=== PATIENT | male | born 1950 | race Caucasian/White ===

== ENCOUNTER 2019-01-19 20:27 | Emergency (ER) | payer OTHER ==
--- NOTE | 2019-01-19 21:31 | CT ---
CT OF THE BRAIN WITHOUT CONTRAST: 01/19/19 INDICATION: History of fall with head injury. COMPARISON: None. FINDINGS: There is a remote lacunar infarct involving the right caudate head. No definite acute infarct, hemorr rocio or hydrocephalus is present. There is mild chronic small vessel white matter ischemic change. Sk ull and extracranial soft tissues appear within normal limits. IMPRESSION: 1. No intracranial abnormality. 2. Mild chronic ischemic changes as above. POS: ALBERTO
--- NOTE | 2019-01-19 21:34 | CT ---
CT CERVICAL SPINE WITHOUT CONTRAST: 01/19/19 INDICATION: Fall with neck pain. COMPARISON: None. FINDINGS: No acute fracture or subluxation is evident. There is moderate multilevel spondylosis of the cervical spine. 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 Prevertebral soft tis sues appear within normal limits. Craniocervical junction is normal appearing. IMPRESSION: No acute osseous abnormality. POS: ALBERTO
--- NOTE | 2019-01-19 21:37 | CT ---
CT OF THE FACE WITHOUT CONTRAST 01/19/19 INDICATION: Fall with injury to the nasal bridge. COMPARISON: None. FINDINGS: There is bilateral nasal bone fractures with displacement of the nasal bone fractures to the right ap proximately 2.5 mm. There is depression of the mid aspect of the right zygomatic arch which may refle ct an acute depressed zygomatic arch fracture; however, there is no overlying soft tissue swelling an d may reflect a remote injury. Left zygomatic arch is intact. The mastoid air cells and paranasal sin uses are clear. Osseous nasal septum appears intact. Orbital rims and orbital delcid are intact. The m andible is intact. IMPRESSION: 1. Displaced bilateral nasal bone fracture. 2. Depression of the right zygomatic arch may reflect sequela of remote injury. Recommend correl ation with clinical exam. POS: ALBERTO
--- NOTE | 2019-01-19 21:38 | RAD ---
LEFT KNEE FOUR VIEWS: 01/19/19 INDICATION: Fall with left knee pain. COMPARISON: None. FINDINGS: There is moderate to severe osteoarthrosis of the left knee. No acute fracture or subluxation is evid ent. No joint capsular distention is noted. IMPRESSION: No acute osseous abnormality. POS: TERESA
[2019-01-19] MEDS ORDERED: Lidocaine 1% w/Epinephrine 1:100K 20 ML VIAL ONE (22:16)
[2019-01-19] MEDS ORDERED: Adacel (T-DAP) 0.5 ML SYRINGE ONE (22:38)
[2019-01-19] MEDS ORDERED: Bacitracin Zinc 1 Packet ONE (23:13)
== END 2019-01-19 23:29 | disposition home or self-care (01) ==
LOC: SCSER 20:27
DX: S02.2XXA Fracture of nasal bones, initial encounter for closed fracture (principal); S01.81XA Laceration without foreign body of other part of head, initial encounter; E78.5 Hyperlipidemia, unspecified; R73.03 Prediabetes; W01.10XA Fall on same level from slipping, tripping and stumbling with subsequent striking against unspecified object, initial encounter
CPT/HCPCS: 12011; 70450; 70486; 72125; 90471; 90715; J2001

== ENCOUNTER 2019-01-26 10:08 | Emergency (ER) | payer OTHER ==
[2019-01-26] MEDS ORDERED: Bacitracin Zinc 1 Packet ONE (10:33)
== END 2019-01-26 10:44 | disposition home or self-care (01) ==
LOC: SCSER 10:08
DX: S01.81XD Laceration without foreign body of other part of head, subsequent encounter (principal); E78.5 Hyperlipidemia, unspecified; R73.03 Prediabetes; X58.XXXD Exposure to other specified factors, subsequent encounter

== ENCOUNTER 2023-11-09 11:18 | Inpatient (IN) | payer OTHER, MEDICARE ==
[~2023-11-09 11:18] MED LIST: Iopamidol-370 76% 500 ML MDV (1 ML CHARGE) ONE
[2023-11-09 11:50] LABS: #Basophils 0.1 thou/uL (0.0-0.2); #Eosinphils 0.2 thou/uL (0.0-0.7); #Monocytes 1.1 thou/uL (0.11-0.59); %Basophils 0.6 % (0.0-1.0); %Eosinophils 1.2 % (0.0-10.0); %Lymphocytes 8.8 % (21.0-51.0); %Monocytes 6.8 % (0.0-10.0); %Neutrophils 82.2 % (42.0-75.0); Hemoglobin 8.7 g/dL (14.0-18.0); Mean Corpuscular HGB CONC 31.1 g/dL (32.0-36.0); Mean Corpuscular Hemoglobin 32.2 pg (27.0-31.0); Mean Corpuscular Volume 103.7 fl (78.0-98.0); Mean Platelet Volume 11.3 fL (7.4-10.4); Platelet Count 258 10x3/uL (130-400); RBC Distribution Width 18.1 % (11.5-14.5); White Blood Cell (WBC) Count 15.8 10x3/uL (4.8-10.8)
[2023-11-09 12:08] LABS: INR-International Normal Ratio 1.4
[2023-11-09 12:09] LABS: PTT 49.3 sec (22.9-36.1)
[2023-11-09 12:14] LABS: ALT (SGPT) 24 U/L (8-55); AST (SGOT) 66 U/L (5-34); Alkaline Phosphatase 253 U/L (40-110); Anion Gap 16 mmol/L (10-20); BUN (Urea Nitrogen) 13 mg/dL (8.4-25.7); Calc. Creatinine Clearance 0 mL/min (70-130); Calcium 8.2 mg/dL (7.8-10.44); Carbon Dioxide 24 mmol/L (23-31); Chloride 100 mmol/L (98-107); Estimated GFR 78; Globulin 3.2 g/dL (2.4-3.5); Glucose 146 mg/dL (83-110); Lipase 37 U/L (8-78); Magnesium 1.3 mg/dL (1.6-2.6); Potassium 4.6 mmol/L (3.5-5.1); Protein, Total 6.2 g/dL (5.8-8.1); Sodium 135 mmol/L (136-145)
[2023-11-09 12:39] LABS: Troponin I Less than 0.010 ng/mL (< 0.028)
[2023-11-09] MEDS ORDERED: Ondansetron PF 4 MG/2 ML Vial ONE (12:47)
[2023-11-09] MEDS ORDERED: Cefepime 2 GM VIAL ONE (12:48)
[2023-11-09] MEDS ORDERED: Sodium Chloride 0.9% 100 ML ONE (12:48)
[2023-11-09] MEDS ORDERED: Pantoprazole 40 MG VIAL ONE (12:48)
[2023-11-09] MEDS ORDERED: Magnesium 2 GM/50 ML BAG (IN WATER) ONE (12:50)
[2023-11-09 13:54] LABS: SARS-CoV-2 NAA Rapid Test Not Detected (NotDetected)
[2023-11-09] MEDS ORDERED: Ondansetron PF 4 MG/2 ML Vial IVP PRN (14:19)
[2023-11-09] MEDS ORDERED: Acetaminophen 650 MG Suppository PR PRN (14:19)
[2023-11-09] MEDS ORDERED: HumaLOG 300 UNITS/3 ML VIAL SC PRN (14:55)
[2023-11-09] MEDS ORDERED: Dextrose 50% Abboject 50 ML SYRINGE SLOW IVP PRN (14:55)
[2023-11-09] MEDS ORDERED: Glucagon 1 MG/ML KIT IM PRN (14:55)
[2023-11-09] MEDS ORDERED: Dextrose 5% in Water 1,000 ML IV PRN (14:55)
[2023-11-09 15:20] LABS: Hemoglobin A1c 6.2 % (4.0-6.0)
[2023-11-09 15:43] LABS: Lactic Acid 3.2 mmol/L (0.5-2.2)
[2023-11-09] MEDS ORDERED: Vancomycin 1 GM/200 ML (FROZEN) BAG ONE (15:49)
[2023-11-09] MEDS: Lactated Ringer's 1,000 ML IV SCH ×2 (17:51→21:00)
[2023-11-09 18:33] VITALS: BMI 31.3
[2023-11-09] MEDS ORDERED: Vancomycin 1 GM in Premix 1 BAG IVPB SCH (18:45)
[2023-11-09 19:32] LABS: Bacteria/HPF None Seen HPF (None Seen); Bilirubin Negative (Negative); Blood, Urine 1+ (Negative); Clarity Clear (Clear); Glucose, Urine (Dipstick) Normal (Negative); Ketone, Urine Negative (Negative); Leukocyte Negative Leu/uL (Negative); Nitrite Negative (Negative); Protein, Urine (Dipstick) Negative (Neg-Trace); Specific Gravity, Urine 1.046 (1.002-1.036); Squamous Epithelial None Seen HPF (0-3); Urobilinogen Normal mg/dL (Less than 2); WBC/HPF 0-3 HPF (0-3)
[2023-11-09] MEDS: Rosuvastatin 10 MG TAB PO SCH (21:00)
[2023-11-09] MEDS: Pantoprazole 40 MG VIAL IVP SCH (21:00)
[2023-11-09] MEDS: Midodrine HCl 5 MG TAB PO SCH (21:00)
[2023-11-09] MEDS ORDERED: Insulin Glargine 30 UNITS/0.3 ML VIAL SC SCH (21:00)
[2023-11-09 22:54] LABS: Hematocrit 20.3 % (42.0-52.0); Hemoglobin 6.3 g/dL (14.0-18.0); Mean Platelet Volume 11.4 fL (7.4-10.4); Platelet Count 168 10x3/uL (130-400); RBC Distribution Width 17.8 % (11.5-14.5); Red Blood Cell (RBC) Count 1.97 mill/uL (4.70-6.10); White Blood Cell (WBC) Count 10.7 10x3/uL (4.8-10.8)
[2023-11-10] MEDS: Cefepime 2 GM in Sodium Chloride 0.9% 100 ML IVPB SCH ×2 (00:56→12:38)
[2023-11-10] MEDS: Lactated Ringer's 1,000 ML IV SCH ×2 (00:59→12:38)
[2023-11-10] MEDS ORDERED: Vancomycin HCl 750 MG in Sodium Chloride 0.9% 250 ML 250 ML IVPB SCH (04:00)
[2023-11-10] MEDS: Levothyroxine Sodium 50 MCG TAB PO SCH (06:52)
[2023-11-10] MEDS ORDERED: fentaNYL 50 mcg/mL 1 mL Vial ONE (10:50)
[2023-11-10] MEDS ORDERED: PROPOFOL 20 ML ONE (10:51)
[2023-11-10] MEDS ORDERED: Promethazine HCl 25 MG/ML VIAL IM PRN (11:10)
[2023-11-10] MEDS ORDERED: Ondansetron HCl/PF 4 MG/2 ML Vial IVP PRN (11:10)
[2023-11-10] MEDS: Midodrine HCl 5 MG TAB PO SCH ×3 (12:27→20:45)
[2023-11-10] MEDS: Pantoprazole 40 MG VIAL IVP SCH ×2 (12:27→20:45)
[2023-11-10 13:24] LABS: #Basophils 0.1 thou/uL (0.0-0.2); #Eosinphils 0.3 thou/uL (0.0-0.7); #Monocytes 0.8 thou/uL (0.11-0.59); #Neutrophils 5.4 thou/uL (1.40-6.50); %Basophils 0.9 % (0.0-1.0); %Eosinophils 3.1 % (0.0-10.0); %Lymphocytes 19.1 % (21.0-51.0); %Monocytes 9.4 % (0.0-10.0); Mean Corpuscular HGB CONC 31.9 g/dL (32.0-36.0); Mean Corpuscular Hemoglobin 32.2 pg (27.0-31.0); Platelet Count 185 10x3/uL (130-400); RBC Distribution Width 18.1 % (11.5-14.5); Red Blood Cell (RBC) Count 2.92 mill/uL (4.70-6.10)
[2023-11-10 13:39] LABS: Hematocrit 29.5 % (42.0-52.0); Hemoglobin 9.4 g/dL (14.0-18.0)
[2023-11-10 13:53] LABS: ALT (SGPT) 24 U/L (8-55); AST (SGOT) 50 U/L (5-34); Albumin 2.9 g/dL (3.4-4.8); Alkaline Phosphatase 189 U/L (40-110); Anion Gap 11 mmol/L (10-20); BUN (Urea Nitrogen) 10 mg/dL (8.4-25.7); Bilirubin, Total 1.9 mg/dL (0.2-1.2); Calc. Creatinine Clearance 106 mL/min (70-130); Calcium 8.3 mg/dL (7.8-10.44); Carbon Dioxide 26 mmol/L (23-31); Chloride 103 mmol/L (98-107); Estimated GFR 92; Globulin 3.2 g/dL (2.4-3.5); Glucose 131 mg/dL (83-110); Magnesium 1.6 mg/dL (1.6-2.6); Potassium 4.3 mmol/L (3.5-5.1); Protein, Total 6.1 g/dL (5.8-8.1); Sodium 136 mmol/L (136-145)
[2023-11-10] MEDS: Vancomycin 1 GM in Premix 1 BAG IVPB SCH (16:13)
[2023-11-10] MEDS: Rosuvastatin 10 MG TAB PO SCH (20:45)
[2023-11-11] MEDS: Cefepime 2 GM in Sodium Chloride 0.9% 100 ML IVPB SCH ×2 (01:56→12:02)
[2023-11-11] MEDS: Vancomycin 1 GM in Premix 1 BAG IVPB SCH (04:35)
[2023-11-11] MEDS: Levothyroxine Sodium 50 MCG TAB PO SCH (04:45)
[2023-11-11] MEDS ORDERED: Insulin Glargine 30 UNITS/0.3 ML VIAL SC SCH (09:00)
[2023-11-11] MEDS: Pantoprazole 40 MG VIAL IVP SCH (09:59)
[2023-11-11] MEDS: Midodrine HCl 5 MG TAB PO SCH ×2 (09:59→16:28)
[2023-11-11 10:17] LABS: #Basophils 0.1 thou/uL (0.0-0.2); #Eosinphils 0.3 thou/uL (0.0-0.7); #Monocytes 0.9 thou/uL (0.11-0.59); #Neutrophils 5.4 thou/uL (1.40-6.50); %Basophils 0.7 % (0.0-1.0); %Eosinophils 3.6 % (0.0-10.0); %Lymphocytes 16.8 % (21.0-51.0); %Monocytes 11.2 % (0.0-10.0); %Neutrophils 67.3 % (42.0-75.0); Hematocrit 25.1 % (42.0-52.0); Mean Corpuscular HGB CONC 31.9 g/dL (32.0-36.0); Mean Corpuscular Hemoglobin 31.7 pg (27.0-31.0); Mean Corpuscular Volume 99.6 fl (78.0-98.0); Mean Platelet Volume 11.7 fL (7.4-10.4); Platelet Count 168 10x3/uL (130-400); RBC Distribution Width 17.2 % (11.5-14.5); Red Blood Cell (RBC) Count 2.52 mill/uL (4.70-6.10); White Blood Cell (WBC) Count 8.1 10x3/uL (4.8-10.8)
[2023-11-11 10:37] LABS: Magnesium 1.4 mg/dL (1.6-2.6)
[2023-11-11 10:40] LABS: ALT (SGPT) 18 U/L (8-55); AST (SGOT) 31 U/L (5-34); Albumin 2.5 g/dL (3.4-4.8); Alkaline Phosphatase 152 U/L (40-110); Anion Gap 9 mmol/L (10-20); BUN (Urea Nitrogen) 10 mg/dL (8.4-25.7); Bilirubin, Total 1.2 mg/dL (0.2-1.2); Calc. Creatinine Clearance 95 mL/min (70-130); Calcium 7.9 mg/dL (7.8-10.44); Carbon Dioxide 25 mmol/L (23-31); Chloride 100 mmol/L (98-107); Estimated GFR 83; Globulin 2.8 g/dL (2.4-3.5); Glucose 313 mg/dL (83-110); Potassium 4.6 mmol/L (3.5-5.1); Protein, Total 5.3 g/dL (5.8-8.1); Sodium 129 mmol/L (136-145)
[2023-11-11] MEDS: HumaLOG 300 UNITS/3 ML VIAL SC PRN ×2 (12:02→16:30)
[2023-11-11 15:01] LABS: Hematocrit 24.5 % (42.0-52.0); Mean Corpuscular HGB CONC 32.7 g/dL (32.0-36.0); Mean Corpuscular Hemoglobin 32.7 pg (27.0-31.0); Mean Platelet Volume 10.9 fL (7.4-10.4); Platelet Count 158 10x3/uL (130-400); Red Blood Cell (RBC) Count 2.45 mill/uL (4.70-6.10); White Blood Cell (WBC) Count 7.9 10x3/uL (4.8-10.8)
[2023-11-11 15:12] LABS: Vancomycin, Trough 14.3 ug/mL
[2023-11-11 16:36] VITALS: BP 128/68; TEMP 98
== END 2023-11-11 17:37 | disposition home or self-care (01) | DRG 377 ==
LOC: ERS 11:18 → MSONC 13:51
PROVIDERS: ADMIT Student in an Organized Health Care Education/Training Program; ATTEND Student in an Organized Health Care Education/Training Program
PROC: 0W3P8ZZ Control Bleeding in Gastrointestinal Tract, Via Natural or Artificial Opening Endoscopic (ICD-10-PCS; principal; 2023-11-10)
PROC: 0DB68ZX Excision of Stomach, Via Natural or Artificial Opening Endoscopic, Diagnostic (ICD-10-PCS; 2023-11-10)
PROC: 30233N1 Transfusion of Nonautologous Red Blood Cells into Peripheral Vein, Percutaneous Approach (ICD-10-PCS; 2023-11-10)
DX: K25.4 Chronic or unspecified gastric ulcer with hemorrhage (principal); I26.99 Other pulmonary embolism without acute cor pulmonale; K83.1 Obstruction of bile duct; I81 Portal vein thrombosis; C25.0 Malignant neoplasm of head of pancreas; E87.20 Acidosis, unspecified; R65.10 Systemic inflammatory response syndrome (SIRS) of non-infectious origin without acute organ dysfunction; C78.7 Secondary malignant neoplasm of liver and intrahepatic bile duct; E11.9 Type 2 diabetes mellitus without complications; Z51.5 Encounter for palliative care; Z66 Do not resuscitate; E03.9 Hypothyroidism, unspecified; E78.5 Hyperlipidemia, unspecified; I95.1 Orthostatic hypotension; F10.10 Alcohol abuse, uncomplicated; E83.42 Hypomagnesemia; E80.6 Other disorders of bilirubin metabolism; R60.0 Localized edema; K44.9 Diaphragmatic hernia without obstruction or gangrene; Z79.4 Long term (current) use of insulin; Z79.890 Hormone replacement therapy; Z79.899 Other long term (current) drug therapy; Z11.52 Encounter for screening for COVID-19; Z86.718 Personal history of other venous thrombosis and embolism; Z80.9 Family history of malignant neoplasm, unspecified; D53.9 Nutritional anemia, unspecified
CPT/HCPCS: 36415; 36416; 36430; 71045; 71260; 74177; 80053; 80202; 81001; 83036; 83605; 83690; 83735; 83880; 84145; 84484; 85025; 85610; 85730; 86850; 86900; 86901; 87040; 88305; 93005; 94760; 96365; 96367; 96368; 96375; C9113; J0692; J1815; J2405; J2704; J3010; J3370-JW; J3475; J3490; J7120; P9016; Q9967

== ENCOUNTER 2023-11-24 14:54 | Outpatient (CLI) | payer MEDICARE, OTHER | END 2023-11-24 14:55 | disposition home or self-care (01) | LOC: BICRAD 14:54 | PROVIDERS: ATTEND Internal Medicine | DX: C25.3 Malignant neoplasm of pancreatic duct (principal); J98.11 Atelectasis | CPT/HCPCS: 71046; 81001; 87086 ==

== ENCOUNTER 2023-12-19 11:52 | Outpatient (CLI) | payer MEDICARE, OTHER | END 2023-12-19 11:53 | disposition home or self-care (01) | LOC: BICRAD 11:52 | PROVIDERS: ATTEND Internal Medicine | DX: C25.3 Malignant neoplasm of pancreatic duct (principal); J90 Pleural effusion, not elsewhere classified | CPT/HCPCS: 36415; 71046; 80053 ==

== ENCOUNTER 2023-12-20 09:03 | Inpatient (IN) | payer MEDICARE, OTHER ==
[2023-12-20] MEDS ORDERED: Acetaminophen 500 MG TAB ONE (09:27)
[2023-12-20] MEDS ORDERED: Ondansetron PF 4 MG/2 ML Vial ONE (09:27)
[2023-12-20 09:39] LABS: Hematocrit 28.8 % (42.0-52.0); Hemoglobin 9.3 g/dL (14.0-18.0); Manual Diff?? YES; Mean Corpuscular HGB CONC 32.3 g/dL (32.0-36.0); Mean Corpuscular Hemoglobin 31.3 pg (27.0-31.0); Mean Platelet Volume 11.5 fL (7.4-10.4); Platelet Count 300 10x3/uL (130-400); RBC Distribution Width 17.2 % (11.5-14.5); Red Blood Cell (RBC) Count 2.97 mill/uL (4.70-6.10); White Blood Cell (WBC) Count 22.6 10x3/uL (4.8-10.8)
[2023-12-20 09:46] LABS: Delete Auto Diff?? YES
[2023-12-20 09:53] LABS: Troponin I 0.021 ng/mL (< 0.028)
[2023-12-20 09:55] LABS: Albumin 2.1 g/dL (3.4-4.8); Anion Gap 18 mmol/L (10-20); BUN (Urea Nitrogen) 17 mg/dL (8.4-25.7); Bilirubin, Total 1.3 mg/dL (0.2-1.2); Calc. Creatinine Clearance 0 mL/min (70-130); Calcium 7.5 mg/dL (7.8-10.44); Carbon Dioxide 16 mmol/L (23-31); Chloride 106 mmol/L (98-107); Critical Call Chemistry NUR.LB16 AT 0954; Estimated GFR 67; Glucose 108 mg/dL (83-110); Potassium 4.3 mmol/L (3.5-5.1); Protein, Total 5.2 g/dL (5.8-8.1); Sodium 136 mmol/L (136-145)
[2023-12-20 09:56] LABS: ALT (SGPT) 29 U/L (8-55); AST (SGOT) 78 U/L (5-34); Alkaline Phosphatase 201 U/L (40-110); Globulin 3.1 g/dL (2.4-3.5); Lipase 9 U/L (8-78); Magnesium 0.9 mg/dL (1.6-2.6)
[2023-12-20 10:06] LABS: Critical Call Chem-Lactate nur.lb16 at 1006
[2023-12-20 10:15] LABS: Base Excess -11.3 mEq/L (-2.0 to +3.0); Calcium, Ionized (venous) 1.07 mmol/L (1.16-1.32); Chloride (VBG) 106 mmol/L (98-106); Hematocrit-VBG 27 % (42.0-52.0); Hemoglobin (Hb) 9.2 g/dL (12.6-17.4); Potassium (VBG) 4.16 mmol/L (3.70-5.30); Sodium 135 mmol/L (133-146)
[2023-12-20 10:20] LABS: Actual Bicarbonate (HCO3v) 14.4 mEq/L (22-28)
[2023-12-20 10:33] LABS: Anisocytosis MARKED = >30 cells HPF (0-5); Band 20 % (5-11); Burr Cells SLIGHT = 2-5 cells HPF (0-1); CellaVision Operator ID LAB.KW3; Giant Platelets 2.8 % (0-5); Large Platelets 22.4 % (0-5); Lymphocytes 2 % (21-51); Metamyelocyte 1 % (0-0); Monocytes 3 % (0-10); Neutrophil 72 % (42-75); Nucleated RBC (Manual Ct) 1 % (0); Platelet Adequacy Comment Platelets Normal; Polychromasia SLIGHT = 2-3 cells HPF (0-2); Schistocytes SLIGHT = 2-5 cells HPF (0-1); Total Cell Count 107
[2023-12-20] MEDS ORDERED: Sodium Chloride 0.9% 100 ML ONE ×2 (10:43→18:33)
[2023-12-20] MEDS ORDERED: NOREPINEPHRINE 8 MG/250 ML-D5W 250 ML ONE (10:43)
[2023-12-20] MEDS ORDERED: Magnesium 2 GM/50 ML BAG (IN WATER) ONE (10:43)
[2023-12-20] MEDS ORDERED: Cefepime 2 GM VIAL ONE (10:43)
[2023-12-20] MEDS ORDERED: Iopamidol-370 76% 500 ML MDV (1 ML CHARGE) ONE (11:13)
[2023-12-20] MEDS ORDERED: metroNIDAZOLE 500 MG (100 mL) BAG ONE (11:45)
[2023-12-20 12:44] LABS: Bacteria/HPF None Seen HPF (None Seen); Bilirubin Negative (Negative); Blood, Urine Trace (Negative); CAUTI Indications for Culture Alt mental st,lethar; Clarity Clear (Clear); Glucose, Urine (Dipstick) Normal (Negative); Ketone, Urine Trace mg/dL (Negative); Leukocyte Negative Leu/uL (Negative); Nitrite Negative (Negative); Protein, Urine (Dipstick) 50 mg/dL (Neg-Trace); RBC/HPF 0-3 HPF (0-3); Squamous Epithelial 0-3 HPF (0-3); Urobilinogen Normal mg/dL (Less than 2); WBC/HPF 0-3 HPF (0-3)
[2023-12-20 12:48] LABS: Specific Gravity, Urine 1.044 (1.002-1.036)
[2023-12-20 12:49] LABS: Urine Culture Reflex No No
[2023-12-20 13:08] LABS: SARS-CoV-2 NAA Rapid Test Not Detected (NotDetected)
[2023-12-20 13:23] LABS: Critical Call Chem-Lactate NUR.LB16@1323; Lactic Acid 9.7 mmol/L (0.5-2.2)
[2023-12-20] MEDS ORDERED: Hydrocortisone Sod Succ/PF 100 mg/2 ml Vial ONE (16:15)
[2023-12-20] MEDS ORDERED: Glucagon 1 MG/ML KIT IM PRN (18:28)
[2023-12-20] MEDS ORDERED: Dextrose 50% Abboject 50 ML SYRINGE SLOW IVP PRN (18:28)
[2023-12-20] MEDS ORDERED: Dextrose 5% in Water 1,000 ML IV PRN (18:28)
[2023-12-20] MEDS ORDERED: Piperacillin/Tazobactam 4.5 GM VIAL ONE (18:32)
[2023-12-20] MEDS ORDERED: NOREPINEPHRINE 8 MG/250 ML-D5W 250 ML IVPB SCH (18:45)
[2023-12-20 19:08] LABS: Base Excess -13.9 mEq/L (-2.0 to +3.0); Calcium, Ionized (venous) 1.03 mmol/L (1.16-1.32); Chloride (VBG) 106 mmol/L (98-106); Hematocrit-VBG 26 % (42.0-52.0); Potassium (VBG) 4.95 mmol/L (3.70-5.30); Sodium 134 mmol/L (133-146); pH (venous) 7.288 (7.32-7.43)
[2023-12-20] MEDS ORDERED: Electrolyte Replacement Protocol 1 EACH FS PRN (19:15)
[2023-12-20 19:17] LABS: Troponin I 0.014 ng/mL (< 0.028)
[2023-12-20 19:45] LABS: ALT (SGPT) 91 U/L (8-55); AST (SGOT) 419 U/L (5-34); Alkaline Phosphatase 177 U/L (40-110); Anion Gap 20 mmol/L (10-20); BUN (Urea Nitrogen) 20 mg/dL (8.4-25.7); Bilirubin, Total 3.7 mg/dL (0.2-1.2); Calc. Creatinine Clearance 0 mL/min (70-130); Calcium 7.5 mg/dL (7.8-10.44); Carbon Dioxide 13 mmol/L (23-31); Chloride 107 mmol/L (98-107); Estimated GFR 60; Globulin 3.2 g/dL (2.4-3.5); Glucose 105 mg/dL (83-110); Potassium 5.1 mmol/L (3.5-5.1); Protein, Total 5.2 g/dL (5.8-8.1); Sodium 135 mmol/L (136-145)
[2023-12-20] MEDS: Albumin 25% 25 GM (100 mL) BOT IVPB SCH (20:17)
[2023-12-20] MEDS: Magnesium 2 GM/50 ML(in water) 2 GM in Premix 1 BAG IVPB SCH (20:18)
[2023-12-20] MEDS: Lactated Ringer's 1,000 ML IV SCH ×2 (20:18→21:15)
[2023-12-20] MEDS: Hydrocortisone Sod Succ/PF 100 mg/2 ml Vial IVP SCH (20:18)
[2023-12-20] MEDS ORDERED: Vancomycin 1 GM in Sodium Chloride 0.9% 250 ML 250 ML IVPB SCH (21:00)
[2023-12-20] MEDS: Vancomycin (BATCH) 1.75 GM in Premix 1 BAG IVPB SCH (21:15)
[2023-12-20] MEDS: Albumin 5% 12.5 GM (250 mL) BOT IVPB SCH (21:15)
[2023-12-20] MEDS: Piperacillin/Tazobactam 3.375 GM in Sodium Chloride 0.9% 100 ML IVPB SCH (21:35)
[2023-12-20 22:33] LABS: Troponin I 0.013 ng/mL (< 0.028)
[2023-12-20 22:34] LABS: Lactic Acid 9.2 mmol/L (0.5-2.2)
[2023-12-20] MEDS: Sodium Bicarb 50 mEq/50 ML VIAL IVP SCH (22:52)
[2023-12-21] MEDS: Vancomycin HCl 750 MG in Sodium Chloride 0.9% 250 ML 250 ML IVPB SCH (03:57)
[2023-12-21 04:47] VITALS: BMI 30.9
[2023-12-21 05:01] LABS: Hematocrit 21.4 % (42.0-52.0); Hemoglobin 6.6 g/dL (14.0-18.0); Manual Diff?? YES; Mean Corpuscular HGB CONC 30.8 g/dL (32.0-36.0); Mean Platelet Volume 12.4 fL (7.4-10.4); Platelet Count 266 10x3/uL (130-400); RBC Distribution Width 18.8 % (11.5-14.5); White Blood Cell (WBC) Count 59.1 10x3/uL (4.8-10.8)
[2023-12-21 05:10] LABS: Delete Auto Diff?? YES
[2023-12-21 05:28] LABS: Lactic Acid 8.8 mmol/L (0.5-2.2)
[2023-12-21 05:38] LABS: ALT (SGPT) 219 U/L (8-55); AST (SGOT) 1639 U/L (5-34); Albumin 2.5 g/dL (3.4-4.8); Alkaline Phosphatase 172 U/L (40-110); Anion Gap 17 mmol/L (10-20); BUN (Urea Nitrogen) 20 mg/dL (8.4-25.7); Bilirubin, Total 8.7 mg/dL (0.2-1.2); Calc. Creatinine Clearance 87 mL/min (70-130); Calcium 7.7 mg/dL (7.8-10.44); Carbon Dioxide 19 mmol/L (23-31); Chloride 105 mmol/L (98-107); Estimated GFR 73; Globulin 2.8 g/dL (2.4-3.5); Glucose 113 mg/dL (83-110); Magnesium 1.7 mg/dL (1.6-2.6); Potassium 5.1 mmol/L (3.5-5.1); Protein, Total 5.3 g/dL (5.8-8.1); Sodium 136 mmol/L (136-145)
[2023-12-21 05:46] LABS: Anisocytosis MARKED = >30 cells HPF (0-5); Band 31 % (5-11); CellaVision Operator ID lab.sh2; Hypochromia SLIGHT = 6-15 cells HPF (0-5); Lymphocytes 3 % (21-51); Macrocytosis MODERATE=16-30 cells HPF (0-5); Metamyelocyte 1 % (0-0); Monocytes 2 % (0-10); Neutrophil 63 % (42-75); Nucleated RBC (Manual Ct) 2 % (0); Ovalocytes SLIGHT = 2-5 cells HPF (0-1); Platelet Adequacy Comment Platelets Normal; Polychromasia MODERATE = 3-4 cells HPF (0-2); Stomatocytes SLIGHT = 2-5 cells HPF (0-1); Total Cell Count 100; Vacuoles MODERATE
[2023-12-21] MEDS: Levothyroxine Sodium 50 MCG TAB PO SCH (05:48)
[2023-12-21 05:59] LABS: Hematocrit 21.2 % (42.0-52.0); Hemoglobin 6.5 g/dL (14.0-18.0); Manual Diff?? YES; Mean Corpuscular HGB CONC 30.7 g/dL (32.0-36.0); Mean Corpuscular Volume 107.6 fl (78.0-98.0); Mean Platelet Volume 12.2 fL (7.4-10.4); Platelet Count 260 10x3/uL (130-400); RBC Distribution Width 19.1 % (11.5-14.5); Red Blood Cell (RBC) Count 1.97 mill/uL (4.70-6.10); White Blood Cell (WBC) Count 57.6 10x3/uL (4.8-10.8)
[2023-12-21 06:02] LABS: Delete Auto Diff?? YES
[2023-12-21 06:25] LABS: Anisocytosis MODERATE=16-30 cells HPF (0-5); Band 14 % (5-11); CellaVision Operator ID lab.sh2; Dohle Bodies SLIGHT; Hypochromia SLIGHT = 6-15 cells HPF (0-5); Large Platelets 1.9 % (0-5); Lymphocytes 3 % (21-51); Macrocytosis SLIGHT = 6-15 cells HPF (0-5); Microcytosis SLIGHT = 6-15 cells HPF (0-5); Monocytes 6 % (0-10); Neutrophil 78 % (42-75); Nucleated RBC (Manual Ct) 3 % (0); Platelet Adequacy Comment Platelets Normal; Polychromasia SLIGHT = 2-3 cells HPF (0-2); Smudge Cells 8.7 %; Total Cell Count 103; Vacuoles MODERATE
[2023-12-21] MEDS: Magnesium 2 GM/50 ML(in water) 2 GM in Premix 1 BAG IVPB SCH (08:29)
[2023-12-21] MEDS: Pantoprazole 40 MG VIAL IVP SCH (08:29)
[2023-12-21] MEDS: Enoxaparin 100 MG (1 mL) SYRINGE SC SCH (08:29)
[2023-12-21] MEDS: Meropenem 1 GM in Sodium Chloride 0.9% 100 ML IVPB SCH ×2 (12:41→23:30)
[2023-12-21 12:56] LABS: Actual Bicarbonate (HCO3v) 11.2 mEq/L (22-28)
[2023-12-21] MEDS ORDERED: Meropenem 1 GM in Sodium Chloride 0.9% 100 ML IVPB SCH (14:00)
[2023-12-21] MEDS: Morphine 2 MG/ML VIAL SLOW IVP PRN (17:29)
[2023-12-21] MEDS: Ondansetron ODT 4 MG TAB PO PRN (23:26)
[2023-12-22] MEDS: HumaLOG 300 UNITS/3 ML VIAL SC PRN (02:10)
[2023-12-22 04:30] LABS: Hemoglobin 9.4 g/dL (14.0-18.0); Manual Diff?? YES; Mean Corpuscular HGB CONC 30.5 g/dL (32.0-36.0); Mean Corpuscular Hemoglobin 31.5 pg (27.0-31.0); Mean Platelet Volume 12.7 fL (7.4-10.4); Platelet Count 231 10x3/uL (130-400); Red Blood Cell (RBC) Count 2.98 mill/uL (4.70-6.10); White Blood Cell (WBC) Count 66.6 10x3/uL (4.8-10.8)
[2023-12-22 04:36] LABS: Delete Auto Diff?? YES; Hematocrit 30.8 % (42.0-52.0); Mean Corpuscular Volume 103.4 fl (78.0-98.0)
[2023-12-22 05:01] LABS: Anisocytosis SLIGHT = 6-15 cells HPF (0-5); Band 24 % (5-11); CellaVision Operator ID LAB.CLH1; Hypochromia SLIGHT = 6-15 cells HPF (0-5); Lymphocytes 1 % (21-51); Monocytes 4 % (0-10); Neutrophil 69 % (42-75); Nucleated RBC (Manual Ct) 2 % (0); Platelet Adequacy Comment Platelets Normal; Polychromasia SLIGHT = 2-3 cells HPF (0-2); Promyelocytes 2 % (0-0); Total Cell Count 100
[2023-12-22 05:47] LABS: ALT (SGPT) 241 U/L (8-55); AST (SGOT) 743 U/L (5-34); Albumin 2.6 g/dL (3.4-4.8); Alkaline Phosphatase 216 U/L (40-110); Anion Gap 19 mmol/L (10-20); BUN (Urea Nitrogen) 30 mg/dL (8.4-25.7); Bilirubin, Total 7.4 mg/dL (0.2-1.2); Calc. Creatinine Clearance 63 mL/min (70-130); Calcium 7.6 mg/dL (7.8-10.44); Carbon Dioxide 14 mmol/L (23-31); Chloride 107 mmol/L (98-107); Estimated GFR 45; Globulin 2.5 g/dL (2.4-3.5); Glucose 216 mg/dL (83-110); Potassium 4.9 mmol/L (3.5-5.1); Protein, Total 5.1 g/dL (5.8-8.1); Sodium 135 mmol/L (136-145)
[2023-12-22 08:00] VITALS: BP 126/58
[2023-12-22] MEDS ORDERED: Indomethacin 50 MG SUPP ONE (09:36)
[2023-12-22] MEDS ORDERED: Lidocaine 2% PF 5 ML VIAL ONE (09:37)
[2023-12-22] MEDS ORDERED: PROPOFOL 20 ML ONE ×2 (09:37→12:20)
[2023-12-22] MEDS ORDERED: Iopamidol 30 ML ONE (09:37)
[2023-12-22] MEDS ORDERED: Rocuronium Bromide 10 MG/ML (10ML VIAL) ONE (09:37)
[2023-12-22] MEDS ORDERED: fentaNYL 50 mcg/mL 1 mL Vial ONE ×7 (09:42→14:33)
[2023-12-22] MEDS ORDERED: PHENYLEPHRINE-NS 100 MCG/ML 10 ML SYRINGE ONE (10:12)
[2023-12-22] MEDS ORDERED: Ondansetron PF 4 MG/2 ML Vial ONE (10:28)
[2023-12-22] MEDS ORDERED: SUGAMMADEX SODIUM 200 MG/2 ML VIAL ONE (10:28)
[2023-12-22] MEDS ORDERED: Dexamethasone 4 mg/ml Vial ONE (10:28)
[2023-12-22] MEDS ORDERED: ePHEDrine Sulfate 50 MG/10 ML VIAL ONE (10:30)
[2023-12-22] MEDS ORDERED: Ondansetron HCl/PF 4 MG/2 ML Vial IVP PRN (10:36)
[2023-12-22] MEDS ORDERED: Ketamine In 0.9 % NaCl 50 MG/5 ML SYRINGE ONE (13:30)
[2023-12-22] MEDS ORDERED: Dexmedetomidine 200 MCG/2 ML VIAL ONE (14:00)
[2023-12-22] MEDS: Vancomycin HCl 500 MG in Sodium Chloride 0.9% 100 ML IVPB SCH (15:06)
[2023-12-22] MEDS ORDERED: Lorazepam 2 MG/ML VIAL ONE (15:21)
[2023-12-22] MEDS ORDERED: fentaNYL 50 mcg/mL 1 mL Vial SLOW IVP PRN (15:24)
[2023-12-22] MEDS ORDERED: Dexmedetomidine In 0.9 % NaCl 100 ML IVPB SCH (15:30)
[2023-12-22] MEDS: Lorazepam 2 MG/ML VIAL SLOW IVP SCH (15:30)
[2023-12-22 16:24] LABS: Hematocrit 26.4 % (42.0-52.0); Hemoglobin 8.1 g/dL (14.0-18.0); Manual Diff?? YES; Mean Corpuscular HGB CONC 30.7 g/dL (32.0-36.0); Mean Corpuscular Hemoglobin 32.3 pg (27.0-31.0); Mean Corpuscular Volume 105.2 fl (78.0-98.0); Mean Platelet Volume 12.6 fL (7.4-10.4); Platelet Count 190 10x3/uL (130-400); RBC Distribution Width 19.4 % (11.5-14.5); Red Blood Cell (RBC) Count 2.51 mill/uL (4.70-6.10); White Blood Cell (WBC) Count 65.7 10x3/uL (4.8-10.8)
[2023-12-22 16:31] LABS: Delete Auto Diff?? YES
[2023-12-22 16:49] LABS: ALT (SGPT) 202 U/L (8-55); AST (SGOT) 431 U/L (5-34); Albumin 2.3 g/dL (3.4-4.8); Alkaline Phosphatase 191 U/L (40-110); Anion Gap 17 mmol/L (10-20); BUN (Urea Nitrogen) 37 mg/dL (8.4-25.7); Bilirubin, Total 4.7 mg/dL (0.2-1.2); Calc. Creatinine Clearance 51 mL/min (70-130); Calcium 7.4 mg/dL (7.8-10.44); Carbon Dioxide 17 mmol/L (23-31); Chloride 107 mmol/L (98-107); Estimated GFR 35; Globulin 2.5 g/dL (2.4-3.5); Glucose 265 mg/dL (83-110); Lipase 28 U/L (8-78); Potassium 5.3 mmol/L (3.5-5.1); Protein, Total 4.8 g/dL (5.8-8.1); Sodium 136 mmol/L (136-145)
[2023-12-22 16:54] LABS: Anisocytosis SLIGHT = 6-15 cells HPF (0-5); Band 11 % (5-11); Burr Cells SLIGHT = 2-5 cells HPF (0-1); CellaVision Operator ID LAB.KB; Hypochromia SLIGHT = 6-15 cells HPF (0-5); Large Platelets 2.9 % (0-5); Lymphocytes 5 % (21-51); Macrocytosis SLIGHT = 6-15 cells HPF (0-5); Monocytes 3 % (0-10); Neutrophil 81 % (42-75); Nucleated RBC (Manual Ct) 4 % (0); Platelet Adequacy Comment Platelets Normal; Polychromasia SLIGHT = 2-3 cells HPF (0-2); Smudge Cells 14.7 %; Total Cell Count 102
[2023-12-22] MEDS: Sodium Chloride 0.45% 1,000 ML IV SCH (17:49)
[2023-12-22] MEDS: Albumin 25% 25 GM (100 mL) BOT IVPB SCH ×2 (17:49→23:11)
[2023-12-22] MEDS ORDERED: NOREPINEPHRINE 8 MG/250 ML-D5W 250 ML IVPB SCH (23:00)
[2023-12-23 04:11] LABS: Hematocrit 24.6 % (42.0-52.0); Hemoglobin 7.5 g/dL (14.0-18.0); Manual Diff?? YES; Mean Corpuscular HGB CONC 30.5 g/dL (32.0-36.0); Mean Corpuscular Hemoglobin 31.8 pg (27.0-31.0); Mean Corpuscular Volume 104.2 fl (78.0-98.0); Mean Platelet Volume 12.9 fL (7.4-10.4); Platelet Count 149 10x3/uL (130-400); Red Blood Cell (RBC) Count 2.36 mill/uL (4.70-6.10); White Blood Cell (WBC) Count 61.9 10x3/uL (4.8-10.8)
[2023-12-23 04:15] LABS: Delete Auto Diff?? YES
[2023-12-23 04:31] LABS: Vancomycin, Trough 21.3 ug/mL
[2023-12-23 04:39] LABS: ALT (SGPT) 159 U/L (8-55); AST (SGOT) 253 U/L (5-34); Albumin 2.7 g/dL (3.4-4.8); Alkaline Phosphatase 136 U/L (40-110); Anion Gap 17 mmol/L (10-20); BUN (Urea Nitrogen) 51 mg/dL (8.4-25.7); Bilirubin, Total 3.6 mg/dL (0.2-1.2); Calc. Creatinine Clearance 40 mL/min (70-130); Calcium 7.5 mg/dL (7.8-10.44); Carbon Dioxide 18 mmol/L (23-31); Chloride 106 mmol/L (98-107); Estimated GFR 26; Globulin 2.3 g/dL (2.4-3.5); Glucose 349 mg/dL (83-110); Lipase 55 U/L (8-78); Potassium 5.6 mmol/L (3.5-5.1); Sodium 135 mmol/L (136-145)
[2023-12-23] MEDS ORDERED: Vancomycin Dose by Levels Sliding Scale (Wt > 99) FS SCH (05:00)
[2023-12-23 05:10] LABS: Anisocytosis MODERATE=16-30 cells HPF (0-5); Band 21 % (5-11); Burr Cells SLIGHT = 2-5 cells HPF (0-1); CellaVision Operator ID LAB.JMM; Hypochromia SLIGHT = 6-15 cells HPF (0-5); Lymphocytes 3 % (21-51); Macrocytosis SLIGHT = 6-15 cells HPF (0-5); Monocytes 4 % (0-10); Myelocyte 3 % (0-0); Neutrophil 69 % (42-75); Nucleated RBC (Manual Ct) 4 % (0); Platelet Adequacy Comment Platelets Normal; Polychromasia SLIGHT = 2-3 cells HPF (0-2); Total Cell Count 100
[2023-12-23] MEDS ORDERED: Vancomycin HCl 500 MG in Sodium Chloride 0.9% 100 ML IVPB SCH (06:00)
[2023-12-23] MEDS: Insulin Regular 300 UNITS/3 ML VIAL IVP SCH (12:33)
[2023-12-23] MEDS: Dextrose 50% Abboject 50 ML SYRINGE SLOW IVP SCH (12:35)
[2023-12-23] MEDS: Ampicillin/Sulbactam 3 GM in Sodium Chloride 0.9% 100 ML IVPB SCH (15:48)
[2023-12-23] MEDS ORDERED: Meropenem 1 GM in Sodium Chloride 0.9% 100 ML IVPB SCH (18:00)
[2023-12-23] MEDS ORDERED: Glucagon 1 MG/ML KIT IM PRN (20:37)
[2023-12-23] MEDS ORDERED: Dextrose 5% in Water 1,000 ML IV PRN (20:37)
[2023-12-23] MEDS ORDERED: Dextrose 50% Abboject 50 ML SYRINGE SLOW IVP PRN (20:37)
[2023-12-23] MEDS: HumaLOG 300 UNITS/3 ML VIAL SC PRN (20:49)
[2023-12-24] MEDS: Sodium Chloride 0.9% 1,000 ML IV SCH (00:49)
[2023-12-24] MEDS: Albumin 25% 25 GM (100 mL) BOT IVPB SCH (03:25)
[2023-12-24] MEDS: Albumin 25% 100 ML ONE (03:26)
[2023-12-24 03:34] LABS: Hematocrit 23.5 % (42.0-52.0); Hemoglobin 7.4 g/dL (14.0-18.0); Manual Diff?? YES; Mean Corpuscular HGB CONC 31.5 g/dL (32.0-36.0); Mean Corpuscular Hemoglobin 31.8 pg (27.0-31.0); Mean Platelet Volume 12.9 fL (7.4-10.4); Platelet Count 103 10x3/uL (130-400); RBC Distribution Width 17.8 % (11.5-14.5); Red Blood Cell (RBC) Count 2.33 mill/uL (4.70-6.10)
[2023-12-24 03:38] LABS: Delete Auto Diff?? YES; Mean Corpuscular Volume 100.9 fl (78.0-98.0)
[2023-12-24 04:00] LABS: ALT (SGPT) 105 U/L (8-55); AST (SGOT) 124 U/L (5-34); Albumin 2.6 g/dL (3.4-4.8); Alkaline Phosphatase 149 U/L (40-110); Anion Gap 12 mmol/L (10-20); BUN (Urea Nitrogen) 77 mg/dL (8.4-25.7); Bilirubin, Total 2.5 mg/dL (0.2-1.2); Calc. Creatinine Clearance 41 mL/min (70-130); Calcium 7.7 mg/dL (7.8-10.44); Carbon Dioxide 21 mmol/L (23-31); Chloride 111 mmol/L (98-107); Estimated GFR 26; Globulin 2.3 g/dL (2.4-3.5); Glucose 237 mg/dL (83-110); Potassium 4.9 mmol/L (3.5-5.1); Protein, Total 4.9 g/dL (5.8-8.1); Sodium 139 mmol/L (136-145)
[2023-12-24 04:16] LABS: Anisocytosis MODERATE=16-30 cells HPF (0-5); Band 5 % (5-11); CellaVision Operator ID LAB.JMM; Hypochromia SLIGHT = 6-15 cells HPF (0-5); Lymphocytes 5 % (21-51); Macrocytosis SLIGHT = 6-15 cells HPF (0-5); Metamyelocyte 1 % (0-0); Monocytes 1 % (0-10); Neutrophil 86 % (42-75); Nucleated RBC (Manual Ct) 5 % (0); Platelet Adequacy Comment Platelets Decreased; Poikilocytosis SLIGHT = 6-15 cells HPF (0-5); Polychromasia SLIGHT = 2-3 cells HPF (0-2); Total Cell Count 100
[2023-12-24] MEDS ORDERED: D5W-AA 4.25% with LYTES 1,000 ML IV SCH (18:15)
[2023-12-24] MEDS: Morphine 4 MG/ML VIAL SLOW IVP PRN (22:07)
[2023-12-25 03:44] LABS: Hematocrit 24.4 % (42.0-52.0); Hemoglobin 7.7 g/dL (14.0-18.0); Manual Diff?? YES; Mean Corpuscular HGB CONC 31.6 g/dL (32.0-36.0); Mean Corpuscular Hemoglobin 31.6 pg (27.0-31.0); Mean Platelet Volume 13.1 fL (7.4-10.4); RBC Distribution Width 17.3 % (11.5-14.5); Red Blood Cell (RBC) Count 2.44 mill/uL (4.70-6.10); White Blood Cell (WBC) Count 34.6 10x3/uL (4.8-10.8)
[2023-12-25 04:00] LABS: Platelet Count 80 10x3/uL (130-400)
[2023-12-25 04:01] LABS: Delete Auto Diff?? YES
[2023-12-25 04:09] LABS: ALT (SGPT) 72 U/L (8-55); AST (SGOT) 77 U/L (5-34); Albumin 2.5 g/dL (3.4-4.8); Alkaline Phosphatase 167 U/L (40-110); Anion Gap 9 mmol/L (10-20); BUN (Urea Nitrogen) 63 mg/dL (8.4-25.7); Calc. Creatinine Clearance 75 mL/min (70-130); Calcium 7.9 mg/dL (7.8-10.44); Carbon Dioxide 25 mmol/L (23-31); Chloride 114 mmol/L (98-107); Estimated GFR 54; Globulin 2.4 g/dL (2.4-3.5); Glucose 244 mg/dL (83-110); Potassium 4.4 mmol/L (3.5-5.1); Protein, Total 4.9 g/dL (5.8-8.1); Sodium 144 mmol/L (136-145)
[2023-12-25] MEDS: Dexmedetomidine 1,000 MCG in NS 250 mL IVPB SCH (04:19)
[2023-12-25 05:32] LABS: Anisocytosis SLIGHT = 6-15 cells HPF (0-5); Band 5 % (5-11); CellaVision Operator ID lab.abc; Hypochromia SLIGHT = 6-15 cells HPF (0-5); Lymphocytes 1 % (21-51); Macrocytosis SLIGHT = 6-15 cells HPF (0-5); Metamyelocyte 1 % (0-0); Myelocyte 1 % (0-0); Neutrophil 91 % (42-75); Nucleated RBC (Manual Ct) 3 % (0); Platelet Adequacy Comment Platelets Decreased; Polychromasia SLIGHT = 2-3 cells HPF (0-2); Reactive Lymphocytes 1 % (0-10); Total Cell Count 100
[2023-12-25] MEDS ORDERED: Scopolamine 1 mg/72 hour Patch TD SCH (11:00)
[2023-12-25] MEDS: Scopolamine 1 mg/72 hour Patch TD SCH (11:55)
[2023-12-25] MEDS ORDERED: Morphine 4 MG/ML VIAL SLOW IVP PRN (15:26)
[2023-12-25] MEDS: Lorazepam 2 MG/ML VIAL SLOW IVP PRN (15:51)
[2023-12-25 16:10] VITALS: TEMP 97.8
== END 2023-12-25 19:45 | disposition hospice, inpatient (51) | DRG 871 ==
LOC: ERS 09:03 → SUATTDRO 09:03 → CCU 18:05 → 2NO 12-21 16:58 → CCU 12-22 13:12
PROVIDERS: ADMIT Family Medicine; ATTEND Internal Medicine
DX: A41.9 Sepsis, unspecified organism (principal); R65.21 Severe sepsis with septic shock
CPT/HCPCS: 36415; 36416; 36430; 36556; 71045; 74018; 74176; 74177; 80053; 80202; 81001; 82805; 83605; 83690; 83735; 84100; 84145; 84484; 85025; 86850; 86900; 86901; 87040; 87077; 87086; 87149; 87186; 93005; 94760; 96361; 96365; 96367; 96375; C9113; J0295; J0692; J1100; J1650; J1720; J1815; J2001; J2060; J2185; J2270; J2272; J2405; J2543; J2704; J3010; J3370; J3475; J3490; J7050; J7120; J7999; P9016; P9045; P9047; Q0162; Q9967

== ENCOUNTER 2023-12-25 20:20 | Inpatient (IN) | payer OTHER ==
[2023-12-25] MEDS ORDERED: Ondansetron PF 4 MG/2 ML Vial IVP PRN (20:30)
[2023-12-25] MEDS ORDERED: Bisacodyl 10 MG SUPP PR PRN (20:31)
[2023-12-25] MEDS ORDERED: Morphine 2 MG/ML VIAL SLOW IVP PRN (20:33)
[2023-12-25] MEDS: Morphine 2 MG/ML VIAL SLOW IVP SCH (21:16)
[2023-12-25] MEDS: Scopolamine 1 mg/72 hour Patch TOP SCH (21:21)
[2023-12-25 22:12] VITALS: TEMP 98.2
[2023-12-25 22:28] VITALS: BMI 33.5
[2023-12-25] MEDS: Lorazepam 2 MG/ML VIAL SLOW IVP PRN (22:55)
[2023-12-26 02:09] VITALS: BP 0/0
== END 2023-12-26 00:05 | disposition expired | DRG 951 ==
LOC: CCU 20:20
PROVIDERS: ADMIT Family Medicine; ATTEND Family Medicine
DX: Z51.5 Encounter for palliative care (principal); A41.9 Sepsis, unspecified organism; E11.9 Type 2 diabetes mellitus without complications; E78.5 Hyperlipidemia, unspecified; E03.9 Hypothyroidism, unspecified; K21.9 Gastro-esophageal reflux disease without esophagitis; Z66 Do not resuscitate; C25.9 Malignant neoplasm of pancreas, unspecified; Z79.4 Long term (current) use of insulin; Z79.84 Long term (current) use of oral hypoglycemic drugs; Z79.890 Hormone replacement therapy; Z98.890 Other specified postprocedural states; Z95.5 Presence of coronary angioplasty implant and graft
CPT/HCPCS: J2060; J2272